=== PATIENT | female | born 1955 | race Caucasian/White ===

== ENCOUNTER 2022-06-24 15:32 | Inpatient (IN) | payer MEDICARE ==
[~2022-06-24] VITALS: Ht 167.6 cm; Wt 86.0 kg
[~2022-06-24 15:32] MED LIST: ACET-1074 PO; ASPI-1264 PO; CHOL20004 PO; EMPA25TA PO; ESOM20CA23 PO; FLUT1BLS3 PO; FURO80TA3 PO; GABA300C PO; GLIM2TAB6 PO; IBUP-1985 PO; INSU200I4 SQ; LACT1CAP65 PO; LEVO150T8 PO; LOVA40TA2 PO; MELA5TAB21 PO; METF-438 PO; PARO20TA6 PO; TRIA1TAB5 PO; VITA-268 PO
[2022-06-24 16:16] LABS: BASOPHILS % (AUTO) 0.5 % (0-1); EOSINOPHILS # (AUTO) 0.1 X10'3 (0-0.9); EOSINOPHILS % (AUTO) 1.1 % (0-6); HEMATOCRIT 36.2 % (35.0-45.0); LYMPHOCYTES # (AUTO) 0.7 X10'3 (1.1-4.8); MEAN CORPUSCULAR HEMOGLOBIN 28.5 PG (27.0-31.0); MEAN CORPUSCULAR HGB CONC 33.3 g/dL (33.0-36.5); MEAN CORPUSCULAR VOLUME 85.6 FL (78-98); MONOCYTES # (AUTO) 0.6 X10'3 (0-0.9); NEUTROPHILS # (AUTO) 8.9 X10'3 (1.8-7.7); NEUTROPHILS % (AUTO) 85.4 % (42-75); PLATELET COUNT 296 X10'3 (140-440); RED BLOOD COUNT 4.23 X10'6 (4.20-5.60); RED CELL DISTRIBUTION WIDTH 23.7 % (11.5-14.5); WHITE BLOOD COUNT 10.4 X10'3 (4.5-11.0)
[2022-06-24 16:40] LABS: ALANINE AMINOTRANSFERASE 26 U/L (12-78); ALBUMIN 2.9 G/DL (3.4-5.0); ALBUMIN/GLOBULIN RATIO 0.7 (1.1-1.5); ALKALINE PHOSPHATASE 76 IU/L (46-116); ANION GAP 9 (8-16); ASPARTATE AMINO TRANSFERASE 21 U/L (10-37); BILIRUBIN,TOTAL 0.5 MG/DL (0.1-1.0); BLOOD UREA NITROGEN 52 MG/DL (7-18); BUN/CREATININE RATIO 49.5 (6.6-38.0); CHLORIDE 95 MMOL/L (99-107); CREATININE 1.05 MG/DL (0.40-0.90); GLUCOSE 236 MG/DL (70-104); POTASSIUM 3.9 MMOL/L (3.5-5.1); SODIUM 132 MMOL/L (135-145); TOTAL CARBON DIOXIDE 28.5 MMOL/L (24-32); TOTAL PROTEIN 7.3 G/DL (6.4-8.2); eGFR 52 ML/MIN
[2022-06-24 16:42] LABS: CALCIUM 13.2 MG/DL (8.5-10.1)
[2022-06-24 16:45] LABS: PLATELET ESTIMATE NORMAL
[2022-06-24 16:47] LABS: ANISOCYTOSIS 3+; ELLIPTOCYTES FEW; POLYCHROMASIA FEW
--- NOTE | 2022-06-24 17:19 | NUR ---
Patient skin signs and mentation are WNL. GCS 15. Reporting increased pain now a 10/10 to right foot and left buttocks. Appears in minor distress.
[2022-06-24] MEDS ORDERED: normal saline 1000ML IV soln IV ONE (20:20)
[2022-06-24] MEDS ORDERED: vancomycin/NS 1 GM ADD-VANTAGE 250 ML IV ONE (20:30)
[2022-06-24] MEDS ORDERED: metroNIDAZOLE-Flagyl 500mg/NS 100 ML IV ONE (21:15)
[2022-06-24 21:17] LABS: CLARITY,URINE CLOUDY (Clear); COLOR,URINE YELLOW (Yellow); GLUCOSE, URINE NEGATIVE (Neg); KETONES,URINE TRACE mg/dl (Neg); LEUKOCYTE ESTERASE ,URINE LARGE (Neg); NITRITES, URINE NEGATIVE (Neg); OCCULT BLOOD,URINE LARGE (Neg); PROTEIN,URINE 100 mg/dl (Neg); UROBILINOGEN,URINE 0.2 E.U/dL (0.2-1.0)
[2022-06-24] MEDS ORDERED: ondansetron/PF 4mg/2ml inj IV ONE (21:25)
[2022-06-24] MEDS ORDERED: morphine 4 MG/ML inj SYRINge IV ONE (21:25)
[2022-06-24 21:41] LABS: UA COLLECTION TYPE STRAIGHT CATH
[2022-06-24 21:43] LABS: WBC,URINE TNTC /HPF (0-4)
[2022-06-24 21:44] LABS: RBC,URINE 20-50 /HPF (0-2)
[2022-06-24 21:46] LABS: BACTERIA,URINE 3+ /HPF (Neg); MUCUS STRANDS NONE SEEN /LPF (Neg); SQUAMOUS EPITHELIAL CELL,UR FEW /LPF (FEW)
[2022-06-24] MEDS ORDERED: CefTRIAXone 2gm/D5W 50ml BAG 50 ML IV ONE (22:10)
[2022-06-24] MEDS ORDERED: INSU100V9 SQ (22:30)
[2022-06-24] MEDS ORDERED: PRED5TAB49 PO (22:31)
[2022-06-24] MEDS ORDERED: HYDR-3965 PO (22:32)
[2022-06-24] MEDS ORDERED: NYST30CR35 TP (22:33)
[2022-06-24] MEDS ORDERED: METF-438 PO (22:33)
[2022-06-24] MEDS ORDERED: ALB0.5UD IH (22:34)
[2022-06-24] MEDS ORDERED: ATR0.5NEB NEB (22:34)
[2022-06-24] MEDS ORDERED: ASPI-1264 PO (22:35)
[2022-06-24] MEDS ORDERED: MOME13HF11 INH (22:35)
[2022-06-24] MEDS ORDERED: PRAV20TA4 PO (22:36)
[2022-06-24] MEDS ORDERED: LEVO150T PO (22:37)
[2022-06-24] MEDS ORDERED: PANT-47 PO (22:37)
[2022-06-24] MEDS ORDERED: APIX5TAB3 PO (22:38)
[2022-06-24] MEDS ORDERED: ondansetron/PF 4mg/2ml inj IV PRN (22:55)
[2022-06-24] MEDS ORDERED: potassium Cl 40MEQ/1/2NS 520ml 520 ML IV PRN (22:55)
[2022-06-24] MEDS ORDERED: acetaminophen 325mg tablet PO PRN (22:55)
[2022-06-24] MEDS ORDERED: magnesium 4gm in 100ml NS 100 ML IV PRN (22:55)
[2022-06-24] MEDS ORDERED: potassium Cl 20 mEq SR tablet PO PRN ×2 (22:55)
[2022-06-24] MEDS ORDERED: magnesium Cl slow-release 64mg tablet PO PRN (22:55)
[2022-06-24] MEDS ORDERED: mag hydrox/Alum hydrox/simeth 30ml oral suspension PO PRN (22:55)
[2022-06-24] MEDS ORDERED: magnesium hydroxide 30ml (MOM) UD suspension PO PRN (22:55)
[2022-06-24] MEDS ORDERED: pamidronate disodium inj 60 MG in normal saline 500ml IV soln 500 ML IV ONE (23:00)
[2022-06-24] MEDS ORDERED: glucagon, human recombinant 1mg kit SUBCUT PRN (23:05)
[2022-06-24] MEDS ORDERED: dextrose 50%-water 50ml dispensing syringe IV PRN ×2 (23:05)
[2022-06-24] MEDS ORDERED: DEXTROSE 15 GM of carb/4 tabs (each vial/BOTTLE has 4 tablets) PO PRN ×2 (23:05)
[2022-06-24] MEDS ORDERED: MESSAGE TO PHARMACY PO ONE (23:05)
[2022-06-24] MEDS ORDERED: PAMIDRONATE IV ONE (23:05)
[2022-06-24] MEDS ORDERED: NORMAL SALINE IV ONE (23:05)
[2022-06-24] MEDS ORDERED: albuterol 2.5 MG/3 ML nebule NEB PRN (23:20)
[2022-06-24] MEDS: normal saline 1000ml 1,000 ML IV SCH (23:59)
--- NOTE | 2022-06-25 01:44 | NUR ---
Patient transitioned to hospital bed. Florez noted patent, hung on bed zafar. Colostomy bag checked at this time, no need for emptying. Warm linens provided. Patient placed back on NIBP, spo2, cardiac monitoring. Patient repositioned in comfortable position. Patient denies other needs at this time.
--- NOTE | 2022-06-25 02:09 | NUR ---
Patient noted to have spo2 of 86 percent while sleeping. Patient was placed on 3L via NC, Spo2 increased to >90 percent.
[2022-06-25] MEDS: albuterol 2.5 MG/3 ML nebule NEB SCH ×4 (04:04→20:58)
[2022-06-25] MEDS: normal saline 1000ml 1,000 ML IV SCH ×2 (05:42→12:12)
[2022-06-25] MEDS ORDERED: levoTHYROXINE 75mcg tablet PO SCH (07:00)
[2022-06-25] MEDS: budesonide 0.5mg/2ml UD nebule IH SCH ×2 (08:22→20:58)
[2022-06-25] MEDS: ipratropium 0.5 MG/2.5ML nebule NEB SCH ×2 (08:22→20:58)
[2022-06-25] MEDS: apixaban 5mg tablet PO SCH ×2 (09:32→20:46)
[2022-06-25] MEDS: aspirin 325mg tablet PO SCH (09:32)
[2022-06-25] MEDS: atorvastatin 10mg tablet PO SCH (09:32)
[2022-06-25] MEDS: pantoprazole 40mg Tablet.DR PO SCH (09:32)
[2022-06-25] MEDS: PARoxetine 20mg tablet PO SCH (09:32)
[2022-06-25] MEDS: predniSONE 20 mg tablet PO SCH (09:32)
[2022-06-25] MEDS: furosemide 20 MG/2 ML vial IV SCH ×2 (09:32→19:59)
[2022-06-25] MEDS: docusate sod 100mg capsule PO SCH ×2 (09:33→19:59)
[2022-06-25 09:40] LABS: POTASSIUM 3.8 MMOL/L (3.5-5.1)
[2022-06-25 09:43] LABS: MAGNESIUM 0.9 MG/DL (1.5-2.4)
[2022-06-25] MEDS: K and/or MAG REPLACEMENT MC SCH ×2 (09:44→19:58)
--- NOTE | 2022-06-25 09:50 | NUR ---
DR MK CONNOLLY FOR CRITICAL MAG LEVEL RESULTS.
--- NOTE | 2022-06-25 10:12 | NUR ---
Patient in room ED 6. I have received report from Kristyn TILLMAN and had the opportunity to ask questions and assume patient care.
--- NOTE | 2022-06-25 10:15 | NUR ---
BLOOD SUGAR CHECKED PER ACCUCHECK WITH READING 43. PATIENT AWAKENS EASILY THEN DOZING IN BED. NO DIET ORDER. ONE AMP 50% DEXTROSE GIVEN IV PUSH. PATIENT ORIENTED TO TIME AND PLACE. TOOK SIPS OF JUICE AND RETAINED.
[2022-06-25 11:00] VITALS: BP 88/54
--- NOTE | 2022-06-25 11:34 | NUR ---
Message: Indu Soto 3012A- Needs a diet order, please. -Christy ABERNATHY 5441 Transaction number: [id number]
--- NOTE | 2022-06-25 12:42 | NUR ---
Message: Indu Soto 3012C - Needs a diet order. Controlled carb? NPO?. Can this PT eat? -Christy ABERNATHY 5441 Transaction number: [id number]
[2022-06-25] MEDS: vancomycin/NS 1 GM ADD-VANTAGE 250 ML IV SCH (14:00)
--- NOTE | 2022-06-25 14:25 | NUR ---
Message: CharlesShakaie 3012C - 3rd page. This Pt needs a diet order, please. -Christy ABERNATHY 5441 Transaction number: [id number] Addendum: 06/25/22 at 1429 by Christy Vora RN Provider finally responded, Pt to be NPO. Please see interventions
[2022-06-25 14:27] LABS: BASOPHILS % (AUTO) 0.6 % (0-1); EOSINOPHILS # (AUTO) 0.1 X10'3 (0-0.9); EOSINOPHILS % (AUTO) 1.8 % (0-6); HEMATOCRIT 30.2 % (35.0-45.0); LYMPHOCYTES # (AUTO) 0.3 X10'3 (1.1-4.8); LYMPHOCYTES % (AUTO) 3.7 % (21-51); MEAN CORPUSCULAR HEMOGLOBIN 29.1 PG (27.0-31.0); MEAN CORPUSCULAR HGB CONC 33.2 g/dL (33.0-36.5); MEAN CORPUSCULAR VOLUME 87.6 FL (78-98); MEAN PLATELET VOLUME 7.6 FL (7.4-10.4); MONOCYTES # (AUTO) 0.3 X10'3 (0-0.9); MONOCYTES % (AUTO) 3.7 % (2-12); NEUTROPHILS # (AUTO) 6.4 X10'3 (1.8-7.7); NEUTROPHILS % (AUTO) 90.2 % (42-75); PLATELET COUNT 211 X10'3 (140-440); RED BLOOD COUNT 3.45 X10'6 (4.20-5.60); RED CELL DISTRIBUTION WIDTH 23.5 % (11.5-14.5); WHITE BLOOD COUNT 7.1 X10'3 (4.5-11.0)
[2022-06-25 14:46] LABS: ALBUMIN 2.2 G/DL (3.4-5.0); ANION GAP 6 (8-16); BLOOD UREA NITROGEN 32 MG/DL (7-18); CALCIUM 10.8 MG/DL (8.5-10.1); CHLORIDE 106 MMOL/L (99-107); CREATININE 0.64 MG/DL (0.40-0.90); GLUCOSE 113 MG/DL (70-104); PHOSPHORUS 1.6 MG/DL (2.3-4.5); POTASSIUM 3.5 MMOL/L (3.5-5.1); SODIUM 138 MMOL/L (135-145); TOTAL CARBON DIOXIDE 25.7 MMOL/L (24-32); eGFR > 90 ML/MIN
[2022-06-25 14:52] LABS: MAGNESIUM 0.8 MG/DL (1.5-2.4)
--- NOTE | 2022-06-25 14:57 | NUR ---
Message: Indu Soto 3012c- Crit Mg 0.8. Replacing Mg with replacement protocol. -Christy ABERNATHY 5441 Transaction number: [id number]
[2022-06-25 15:00] VITALS: BP 90/49
[2022-06-25] MEDS ORDERED: magnesium 2GM in 50ml NS 50 ML IV PRN (15:05)
[2022-06-25] MEDS ORDERED: magnesium 4gm in 100ml NS 100 ML IV PRN (15:05)
[2022-06-25] MEDS: piperacillin/tazo 3.375gm/50ml 50 ML IV SCH (16:44)
[2022-06-25 18:00] VITALS: BP 93/48
--- NOTE | 2022-06-25 18:38 | NUR ---
Problems reprioritized. Patient report given, questions answered & plan of care reviewed with Araceli RN.
--- NOTE | 2022-06-25 20:00 | NUR ---
Received pt. awake aware lethargic. Answers questions appropriately appears depressed. Skin is cool and edematous. Peripheral IV intact NS and Mag replacement infusing. Pt. has a colostomy bag with mod amt of liquid brown stool. Home sims with mod amt yellow clear urine. Pt. is NPO. Paged MD patrick for phos replacement orders.
[2022-06-25] MEDS ORDERED: sodium phosphate inj. 15 MMOL in dextrose 5%-water 250 ML IV PRN (20:40)
[2022-06-25] MEDS ORDERED: potassium phosphate inj 15 MMOL in NS 250ml IV soln 250 ML IV ONE (20:45)
[2022-06-25] MEDS: gabapentin 300mg capsule PO SCH (20:46)
[2022-06-25] MEDS: insulin glargine (Lantus) pen - multi-dose SQ SCH (21:00)
[2022-06-25] MEDS ORDERED: insulin glargine (Lantus) pen - multi-dose SQ SCH (21:00)
[2022-06-25] MEDS: HYDROcodone/acetaminophen 5mg/325mg tablet PO PRN (21:41)
[2022-06-25 22:00] VITALS: BP 120/62
[2022-06-25] MEDS ORDERED: CefTRIAXone/D5W-Rocephin 1gm 50 ML IV SCH (22:00)
--- NOTE | 2022-06-26 00:48 | NUR ---
Spoke with daughter Mckenna; concerned for pt's pain and NPO status as pt. called her with complaints. Assured pt has been medicated for pain but not at usual home dose due to low BP. Pt is NPO due to CT results. Pt. is getting plenty of IV fluids for hydration; glucose level is normal and insulin is on hold tonight. Daughter has been reassured needs are being met. Will update as needed and as time permits.
[2022-06-26] MEDS: piperacillin/tazo 3.375gm/50ml 50 ML IV SCH ×3 (01:11→16:47)
[2022-06-26] MEDS: normal saline 1000ml 1,000 ML IV SCH ×2 (01:13→14:11)
[2022-06-26] MEDS: vancomycin/NS 1 GM ADD-VANTAGE 250 ML IV SCH ×2 (02:12→14:18)
[2022-06-26 02:31] VITALS: BP 99/62
[2022-06-26 02:39] LABS: ALANINE AMINOTRANSFERASE 21 U/L (12-78); ALBUMIN 2.2 G/DL (3.4-5.0); ALBUMIN/GLOBULIN RATIO 0.6 (1.1-1.5); ALKALINE PHOSPHATASE 60 IU/L (46-116); ANION GAP 8 (8-16); ASPARTATE AMINO TRANSFERASE 14 U/L (10-37); BILIRUBIN,TOTAL 0.2 MG/DL (0.1-1.0); BLOOD UREA NITROGEN 24 MG/DL (7-18); BUN/CREATININE RATIO 32.4 (6.6-38.0); CALCIUM 10.6 MG/DL (8.5-10.1); CHLORIDE 108 MMOL/L (99-107); CREATININE 0.74 MG/DL (0.40-0.90); GLUCOSE 101 MG/DL (70-104); MAGNESIUM 2.4 MG/DL (1.5-2.4); PHOSPHORUS 2.4 MG/DL (2.3-4.5); POTASSIUM 3.5 MMOL/L (3.5-5.1); SODIUM 140 MMOL/L (135-145); TOTAL CARBON DIOXIDE 24.2 MMOL/L (24-32); TOTAL PROTEIN 5.7 G/DL (6.4-8.2); eGFR 78 ML/MIN
[2022-06-26] MEDS: albuterol 2.5 MG/3 ML nebule NEB SCH ×4 (03:00→20:03)
[2022-06-26] MEDS: HYDROcodone/acetaminophen 5mg/325mg tablet PO PRN ×2 (03:58→16:47)
[2022-06-26 06:43] LABS: BASOPHILS % (AUTO) 0.7 % (0-1); EOSINOPHILS # (AUTO) 0.3 X10'3 (0-0.9); EOSINOPHILS % (AUTO) 3.9 % (0-6); HEMATOCRIT 31.2 % (35.0-45.0); HEMOGLOBIN 10.2 g/dl (12.0-16.0); LYMPHOCYTES # (AUTO) 0.5 X10'3 (1.1-4.8); LYMPHOCYTES % (AUTO) 8.1 % (21-51); MEAN CORPUSCULAR HGB CONC 32.8 g/dL (33.0-36.5); MEAN CORPUSCULAR VOLUME 88.6 FL (78-98); MEAN PLATELET VOLUME 7.5 FL (7.4-10.4); MONOCYTES # (AUTO) 0.4 X10'3 (0-0.9); MONOCYTES % (AUTO) 6.1 % (2-12); NEUTROPHILS # (AUTO) 5.4 X10'3 (1.8-7.7); NEUTROPHILS % (AUTO) 81.2 % (42-75); PLATELET COUNT 228 X10'3 (140-440); RED BLOOD COUNT 3.52 X10'6 (4.20-5.60); RED CELL DISTRIBUTION WIDTH 23.5 % (11.5-14.5); WHITE BLOOD COUNT 6.7 X10'3 (4.5-11.0)
[2022-06-26 07:00] VITALS: BP 104/53
[2022-06-26 07:54] LABS: ANISOCYTOSIS 3+; PLATELET ESTIMATE NORMAL; POIKILOCYTOSIS 1+; POLYCHROMASIA FEW; ROULEAUX 1+
[2022-06-26] MEDS: docusate sod 100mg capsule PO SCH ×2 (08:00→22:21)
[2022-06-26] MEDS: K and/or MAG REPLACEMENT MC SCH ×2 (08:00→21:53)
[2022-06-26] MEDS: budesonide 0.5mg/2ml UD nebule IH SCH ×2 (08:16→20:03)
[2022-06-26] MEDS: ipratropium 0.5 MG/2.5ML nebule NEB SCH ×2 (08:16→20:03)
[2022-06-26] MEDS: aspirin 325mg tablet PO SCH (08:23)
[2022-06-26] MEDS: levoTHYROXINE 175mcg tablet PO SCH (08:23)
[2022-06-26] MEDS: predniSONE 20 mg tablet PO SCH (08:23)
[2022-06-26] MEDS: apixaban 5mg tablet PO SCH ×2 (08:24→22:21)
[2022-06-26] MEDS: atorvastatin 10mg tablet PO SCH (08:24)
[2022-06-26] MEDS: pantoprazole 40mg Tablet.DR PO SCH (08:24)
[2022-06-26] MEDS: PARoxetine 20mg tablet PO SCH (09:54)
[2022-06-26 12:00] VITALS: BP 111/78
[2022-06-26 16:00] VITALS: BP 102/50
[2022-06-26 18:00] VITALS: BP 115/58
[2022-06-26] MEDS: insulin glargine (Lantus) pen - multi-dose SQ SCH (21:00)
--- NOTE | 2022-06-26 22:02 | NUR ---
[id number] REQUESTING MELATONIN AND BENADRYL. CAN I PLEASE HAVE AN ORDER. Addendum: 06/26/22 at 2203 by Laxmi Mata RN PAGE SENT:[place] [id number] IS REQUESTING MELATONIN AND BENADRYL. CAN I PLEASE HAVE AN ORDER.
[2022-06-26] MEDS: gabapentin 300mg capsule PO SCH (22:21)
[2022-06-26] MEDS: diphenhydrAMINE 25mg capsule PO PRN (22:21)
[2022-06-26] MEDS: Melatonin 3mg tablet PO SCH (22:22)
[2022-06-27] MEDS: HYDROcodone/acetaminophen 5mg/325mg tablet PO PRN ×3 (00:39→22:40)
[2022-06-27] MEDS: piperacillin/tazo 3.375gm/50ml 50 ML IV SCH ×3 (00:40→16:54)
[2022-06-27] MEDS ORDERED: VANCOMYCIN LEVEL IV ONE (01:30)
[2022-06-27 02:00] VITALS: BP 110/62
[2022-06-27] MEDS: vancomycin/NS 1 GM ADD-VANTAGE 250 ML IV SCH ×2 (03:27→15:08)
[2022-06-27] MEDS: normal saline 1000ml 1,000 ML IV SCH ×2 (03:31→19:03)
[2022-06-27] MEDS: albuterol 2.5 MG/3 ML nebule NEB SCH ×4 (03:36→20:15)
[2022-06-27 03:49] LABS: ALANINE AMINOTRANSFERASE 19 U/L (12-78); ALBUMIN/GLOBULIN RATIO 0.6 (1.1-1.5); ALKALINE PHOSPHATASE 58 IU/L (46-116); ANION GAP 8 (8-16); ASPARTATE AMINO TRANSFERASE 21 U/L (10-37); BILIRUBIN,TOTAL 0.2 MG/DL (0.1-1.0); BLOOD UREA NITROGEN 22 MG/DL (7-18); BUN/CREATININE RATIO 21.2 (6.6-38.0); CALCIUM 9.5 MG/DL (8.5-10.1); CHLORIDE 110 MMOL/L (99-107); CREATININE 1.04 MG/DL (0.40-0.90); GLUCOSE 200 MG/DL (70-104); MAGNESIUM 1.8 MG/DL (1.5-2.4); PHOSPHORUS 1.6 MG/DL (2.3-4.5); POTASSIUM 3.4 MMOL/L (3.5-5.1); SODIUM 140 MMOL/L (135-145); TOTAL CARBON DIOXIDE 22.3 MMOL/L (24-32); TOTAL PROTEIN 5.3 G/DL (6.4-8.2); VANCOMYCIN,TROUGH 18.1 UG/ML (6.0-14.0); eGFR 53 ML/MIN
[2022-06-27 07:00] VITALS: BP 111/60
[2022-06-27 07:05] LABS: BASOPHILS % (AUTO) 0.4 % (0-1); EOSINOPHILS # (AUTO) 0.2 X10'3 (0-0.9); EOSINOPHILS % (AUTO) 3.4 % (0-6); HEMATOCRIT 28.8 % (35.0-45.0); HEMOGLOBIN 9.6 g/dl (12.0-16.0); LYMPHOCYTES # (AUTO) 0.7 X10'3 (1.1-4.8); LYMPHOCYTES % (AUTO) 9.9 % (21-51); MEAN CORPUSCULAR HGB CONC 33.2 g/dL (33.0-36.5); MEAN CORPUSCULAR VOLUME 87.5 FL (78-98); MEAN PLATELET VOLUME 7.3 FL (7.4-10.4); MONOCYTES # (AUTO) 0.4 X10'3 (0-0.9); MONOCYTES % (AUTO) 5.7 % (2-12); NEUTROPHILS # (AUTO) 5.6 X10'3 (1.8-7.7); NEUTROPHILS % (AUTO) 80.6 % (42-75); PLATELET COUNT 231 X10'3 (140-440); RED CELL DISTRIBUTION WIDTH 23.6 % (11.5-14.5)
--- NOTE | 2022-06-27 07:52 | NUR ---
PM BS not checked and Lantus not given by the NOC. Charge had several pt's and work load prevented administration.
[2022-06-27] MEDS: K and/or MAG REPLACEMENT MC SCH ×2 (08:00→19:04)
[2022-06-27] MEDS: docusate sod 100mg capsule PO SCH ×2 (08:00→19:06)
[2022-06-27] MEDS: levoTHYROXINE 175mcg tablet PO SCH (08:00)
[2022-06-27] MEDS: atorvastatin 10mg tablet PO SCH (08:01)
[2022-06-27] MEDS: PARoxetine 20mg tablet PO SCH (08:01)
[2022-06-27] MEDS: pantoprazole 40mg Tablet.DR PO SCH (08:01)
[2022-06-27] MEDS: predniSONE 20 mg tablet PO SCH (08:01)
[2022-06-27 08:13] LABS: IMMUNOGLOBULIN A, QN, SERUM 202 mg/dL (87-352); IMMUNOGLOBULIN G, QN, SERUM 541 mg/dL (586-1602); IMMUNOGLOBULIN M, QN, SERUM 103 mg/dL (26-217)
[2022-06-27] MEDS: budesonide 0.5mg/2ml UD nebule IH SCH ×2 (08:31→20:15)
[2022-06-27] MEDS: ipratropium 0.5 MG/2.5ML nebule NEB SCH ×2 (08:31→20:15)
--- NOTE | 2022-06-27 09:46 | NUR ---
Message: Charles 3015B, Pt has a low phos of 1.6 but we don't have any replacement orders for the pt. Can you or I add that order on? Alok [id number]
[2022-06-27] MEDS ORDERED: sodium chloride 0.45% 1,000 ML IV SCH (10:15)
[2022-06-27] MEDS ORDERED: midazolam 1 mg/ML 2ml injection ONE (10:21)
[2022-06-27] MEDS ORDERED: fentaNYL/PF 50MCG/1 ML 2ML syringe ONE (10:22)
[2022-06-27] MEDS ORDERED: LIDOcaine 1% (10mg/ml) 2ml vial ONE (10:22)
--- NOTE | 2022-06-27 10:36 | NUR ---
Pt taken down to Angio for lung biopsy
[2022-06-27] MEDS ORDERED: potassium phosphate inj 30 MMOL in normal saline 250ml IV soln 250 ML IV ONE (11:35)
[2022-06-27 12:00] VITALS: BP 114/62
--- NOTE | 2022-06-27 12:00 | NUR ---
reported critical lab value to primary and administrative representative
--- NOTE | 2022-06-27 12:15 | NUR ---
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 Alok [phone]
--- NOTE | 2022-06-27 15:02 | NUR ---
Message: Charles [id number], Pt's family wants to know plan of care today now with VRE infection if she will still be DC'd. Daughter Mckenna [phone]. Or I can update her if you prefer updating me. Alok [phone]
--- NOTE | 2022-06-27 15:12 | NUR ---
Message: Charles 3015B, Pt has a new onset of Afib Aflutter. Current HR is 115. Alok 2222
--- NOTE | 2022-06-27 15:27 | NUR ---
WOUND NURSE IN AT 10:15AM AND AGAIN AT 11:00 AM TO ADDRESS THE WOUND CARE CONSULT. PT REMAINS OUT OF THE ROOM FOR BX PROCEDURE. WOUND TEAM WILL PLAN TO SEE TOMORROW FOR ASSESSMENT/TX OF WOUND.
--- NOTE | 2022-06-27 15:52 | NUR ---
Message: Charles 6295B, Urgent - Pt still in A flutter sitting at a steady 148 HR. Do you want an IV push or GTT started? We are doing an EKG now. Alok [phone]
[2022-06-27] MEDS ORDERED: diltiazem 5mg/ml 5ml inj. IV ONE (16:30)
--- NOTE | 2022-06-27 16:35 | NUR ---
responded to pt update. Starting on Cardizem IV push and GTT order.
[2022-06-27] MEDS: diltiazem-NS 100mg/100ml 100 ML IV SCH (17:45)
--- NOTE | 2022-06-27 17:57 | NUR ---
Message: Charles [id number], Pt wants to be swapped to DNR status. Will tell NOC as well. Alok [phone]
--- NOTE | 2022-06-27 17:58 | NUR ---
Pt stated to me she wanted to be swapped to DNR. I discussed what that meant to her and she agreed and said that she still wanted to be DNR. She stated her daughter is her PoA and both have talked about what DNR meant and that they agreed with the change. I have reached out to Dr Hernandez about her wishes but as it is change of shift I will also discuss with NOC. Pt seems sure in her understanding and clearly stated her wishes.
[2022-06-27] MEDS: insulin Lispro (HumaLOG) vial - multi-dose SQ SCH (19:49)
[2022-06-27] MEDS: diphenhydrAMINE 25mg capsule PO PRN (20:56)
[2022-06-27] MEDS: Melatonin 3mg tablet PO SCH (20:56)
[2022-06-27] MEDS: gabapentin 300mg capsule PO SCH (20:56)
[2022-06-27] MEDS: insulin glargine (Lantus) pen - multi-dose SQ SCH (21:12)
[2022-06-27 22:00] VITALS: BP 110/62
[2022-06-27] MEDS: linezolid 600mg/300ml PREMIX 300 ML IV SCH (22:40)
[2022-06-28] VITALS (11 sets, daily range): BP systolic 107–140; BP diastolic 50–74
[2022-06-28] MEDS: albuterol 2.5 MG/3 ML nebule NEB SCH ×4 (03:56→20:52)
[2022-06-28 06:27] LABS: BASOPHILS % (AUTO) 0.5 % (0-1); EOSINOPHILS # (AUTO) 0.2 X10'3 (0-0.9); EOSINOPHILS % (AUTO) 2.3 % (0-6); HEMATOCRIT 30.7 % (35.0-45.0); HEMOGLOBIN 9.9 g/dl (12.0-16.0); LYMPHOCYTES # (AUTO) 0.9 X10'3 (1.1-4.8); LYMPHOCYTES % (AUTO) 9.7 % (21-51); MEAN CORPUSCULAR HGB CONC 32.2 g/dL (33.0-36.5); MEAN CORPUSCULAR VOLUME 90.1 FL (78-98); MEAN PLATELET VOLUME 7.3 FL (7.4-10.4); MONOCYTES # (AUTO) 0.4 X10'3 (0-0.9); MONOCYTES % (AUTO) 4.4 % (2-12); NEUTROPHILS # (AUTO) 7.6 X10'3 (1.8-7.7); NEUTROPHILS % (AUTO) 83.1 % (42-75); PLATELET COUNT 223 X10'3 (140-440); RED BLOOD COUNT 3.41 X10'6 (4.20-5.60); WHITE BLOOD COUNT 9.2 X10'3 (4.5-11.0)
--- NOTE | 2022-06-28 06:30 | NUR ---
Patient in room PCU 3015. I have received report from Jc TILLMAN and had the opportunity to ask questions and assume patient care.
[2022-06-28 06:38] LABS: ALANINE AMINOTRANSFERASE 15 U/L (12-78); ALBUMIN 2.1 G/DL (3.4-5.0); ALBUMIN/GLOBULIN RATIO 0.6 (1.1-1.5); ALKALINE PHOSPHATASE 60 IU/L (46-116); ANION GAP 8 (8-16); ASPARTATE AMINO TRANSFERASE 9 U/L (10-37); BILIRUBIN,TOTAL 0.2 MG/DL (0.1-1.0); BLOOD UREA NITROGEN 16 MG/DL (7-18); BUN/CREATININE RATIO 17.4 (10.0-20.0); CALCIUM 9.4 MG/DL (8.5-10.1); CHLORIDE 112 MMOL/L (99-107); CREATININE 0.92 MG/DL (0.40-0.90); GLUCOSE 158 MG/DL (70-104); MAGNESIUM 1.6 MG/DL (1.5-2.4); PHOSPHORUS 1.6 MG/DL (2.3-4.5); POTASSIUM 3.7 MMOL/L (3.5-5.1); SODIUM 143 MMOL/L (135-145); TOTAL CARBON DIOXIDE 22.6 MMOL/L (24-32); TOTAL PROTEIN 5.5 G/DL (6.4-8.2); eGFR 61 ML/MIN
[2022-06-28] MEDS: levoTHYROXINE 175mcg tablet PO SCH (07:00)
[2022-06-28 07:37] LABS: ANISOCYTOSIS 3+; BURR CELLS 1+; ELLIPTOCYTES 1+; PLATELET ESTIMATE NORMAL; POLYCHROMASIA FEW; ROULEAUX 1+
[2022-06-28] MEDS: pantoprazole 40mg Tablet.DR PO SCH (07:51)
[2022-06-28] MEDS: atorvastatin 10mg tablet PO SCH (07:51)
[2022-06-28] MEDS: predniSONE 20 mg tablet PO SCH (07:52)
[2022-06-28] MEDS: PARoxetine 20mg tablet PO SCH (07:52)
[2022-06-28] MEDS: linezolid 600mg/300ml PREMIX 300 ML IV SCH ×2 (07:56→20:44)
[2022-06-28] MEDS: K and/or MAG REPLACEMENT MC SCH ×2 (08:00→20:00)
[2022-06-28] MEDS: docusate sod 100mg capsule PO SCH ×2 (08:00→18:52)
[2022-06-28] MEDS: piperacillin/tazo 3.375gm/50ml 50 ML IV SCH ×4 (08:37→23:57)
[2022-06-28] MEDS: normal saline 1000ml 1,000 ML IV SCH (10:32)
--- NOTE | 2022-06-28 11:15 | NUR ---
Nurse checked on Pt who was requesting respiratory tx. Nurse paged RT to request treatment to be done.
[2022-06-28] MEDS: HYDROcodone/acetaminophen 5mg/325mg tablet PO PRN (11:55)
[2022-06-28] MEDS: ipratropium 0.5 MG/2.5ML nebule NEB SCH ×2 (13:00→20:52)
[2022-06-28] MEDS: budesonide 0.5mg/2ml UD nebule IH SCH ×2 (13:00→20:52)
--- NOTE | 2022-06-28 13:05 | NUR ---
PRESSURE ULCER EDUCATION: DEFINITION: A pressure ulcer is an area of skin that breaks down when you stay in one position too long. The constant pressure against the skin reduces the blood flow to that area and the affected tissue dies. CAUSES: "Being bedridden or in a wheelchair "Fragile skin "Having a chronic condition, such as diabetes or vascular disease "Inability to move certain parts of your body without assistance "Older age "Incontinence of urine or stool SYMPTOMS: "A reddened area that DOES NOT turn white when pressed on - this can be the beginning of a pressure ulcer "A blister, deep sore or a crater - these can be advanced pressure ulcers FIRST AID: "Relieve the pressure on this area "Keep the area clean and dry "Call your primary doctor if you see any of the above symptoms "DO NOT massage the area "DO NOT use a donut shaped or ring shaped pillow- these actually interfere with the blood flow and cause complications PREVENTION: "Check for pressure ulcers everyday "Change position at least every two hours to relieve pressure "Use items that help relieve pressure- pillows, sheepskin, foam padding, and powders. "Keep skin clean and dry "Eat healthy well balanced meals "Exercise daily IF YOU SEE ANY OF THESE SYMPTOMS WHILE IN THE HOSPITAL - TELL YOUR NURSE IMMEDIATELY. IF YOU SEE ANY OF THESE SYMPTOMS WHILE AT HOME OR HAVE ANY QUESTIONS OR CONCERNS ABOUT PRESSURE ULCERS - CALL YOUR PRIMARY DOCTOR IMMEDIATELY. Addendum: 06/28/22 at 1306 by Sabrina Power RN Amended: Links added.
[2022-06-28] MEDS: insulin Lispro (HumaLOG) vial - multi-dose SQ SCH ×2 (13:36→18:51)
--- NOTE | 2022-06-28 14:05 | NUR ---
Initial: Pt presented for weakness and confusion and admit for hypercalcemia and encephalopathy. Pt with recent necrotizing fasciitis and colostomy placement. Per WOC note pt with surgical wound to left buttocks that is 13.0 cm long, 6.0 cm wide, and 1.0 cm deep. Pt currently receiving routine Linzeolid. Per EMR pt pending biopsy for multiple bilat lung nodules and code status just changed to DNR. Will provide low tyramine nutrition therapy education as appropriate. Per EMR pt with T2DM, well controlled with A1c 7.7% 05/07/22. Pt and daughter were seen by RD 05/07 and provided with DM education and RD contact information, no further education planned at this time. Pt on a CHO controlled diet and eating well, documented with 100% PO intake meeting estimated nutrient needs. per I&O LBM 06/27 though no documentation of how much stool output via colostomy. Will continue to follow and monitor need for nutrition intervention. Recommendations: 1) Continue CHO controlled diet 2) Monitor need for ONS/additional protein 3) Routine bowel care 4) Scaled weight this admit; subsequent weekly scaled weights 5) Low tyramine nutrition therapy education as appropriate Addendum: 06/28/22 at [address] Amended: Links added.
--- NOTE | 2022-06-28 16:46 | NUR ---
Paged Provider Message: [phone]. Charles. Pt req inc. in melatonin from 3 to 6mg. this is what pt takes at home. Karla Samano [phone] Transaction number: [id number]
--- NOTE | 2022-06-28 17:40 | NUR ---
Called Pharmacy re: continuous cardizem drip requesting another one to be brought up. current one almost done infusing.
[2022-06-28] MEDS: diltiazem-NS 100mg/100ml 100 ML IV SCH ×2 (18:34→19:10)
--- NOTE | 2022-06-28 18:48 | NUR ---
[place] Medication Administration: For this medication-pass time frame, all medication were reviewed, dispensed, administered and documented per hospital policy by LAYNE Bliss.
--- NOTE | 2022-06-28 18:48 | NUR ---
[place] documentation: I have reviewed and agree with all interventions, assessments performed and documented by LAYNE Bliss.
[2022-06-28] MEDS: gabapentin 300mg capsule PO SCH (18:51)
[2022-06-28] MEDS: diphenhydrAMINE 25mg capsule PO PRN (20:44)
[2022-06-28] MEDS: Melatonin 3mg tablet PO SCH (20:44)
[2022-06-28] MEDS: insulin glargine (Lantus) pen - multi-dose SQ SCH (21:00)
[2022-06-28] MEDS: diltiazem SR 60mg capsule (twice daily) PO SCH (23:45)
[2022-06-29] VITALS (19 sets, daily range): BP systolic 114–147; BP diastolic 61–86
[2022-06-29] MEDS: albuterol 2.5 MG/3 ML nebule NEB SCH ×4 (03:00→20:07)
[2022-06-29 06:08] LABS: BASOPHILS % (AUTO) 0.5 % (0-1); EOSINOPHILS # (AUTO) 0.2 X10'3 (0-0.9); EOSINOPHILS % (AUTO) 2.1 % (0-6); HEMATOCRIT 27.9 % (35.0-45.0); HEMOGLOBIN 9.1 g/dl (12.0-16.0); LYMPHOCYTES % (AUTO) 12.2 % (21-51); MEAN CORPUSCULAR HEMOGLOBIN 28.5 PG (27.0-31.0); MEAN CORPUSCULAR HGB CONC 32.5 g/dL (33.0-36.5); MEAN CORPUSCULAR VOLUME 87.5 FL (78-98); MONOCYTES # (AUTO) 0.5 X10'3 (0-0.9); MONOCYTES % (AUTO) 5.6 % (2-12); NEUTROPHILS # (AUTO) 6.5 X10'3 (1.8-7.7); NEUTROPHILS % (AUTO) 79.6 % (42-75); PLATELET COUNT 226 X10'3 (140-440); RED BLOOD COUNT 3.19 X10'6 (4.20-5.60); RED CELL DISTRIBUTION WIDTH 23.5 % (11.5-14.5); WHITE BLOOD COUNT 8.2 X10'3 (4.5-11.0)
[2022-06-29 06:27] LABS: ALANINE AMINOTRANSFERASE 20 U/L (12-78); ALBUMIN 2.2 G/DL (3.4-5.0); ALBUMIN/GLOBULIN RATIO 0.7 (1.1-1.5); ALKALINE PHOSPHATASE 63 IU/L (46-116); ANION GAP 9 (8-16); ASPARTATE AMINO TRANSFERASE 13 U/L (10-37); BILIRUBIN,TOTAL 0.2 MG/DL (0.1-1.0); BLOOD UREA NITROGEN 15 MG/DL (7-18); BUN/CREATININE RATIO 23.4 (10.0-20.0); CALCIUM 9.2 MG/DL (8.5-10.1); CHLORIDE 111 MMOL/L (99-107); CREATININE 0.64 MG/DL (0.40-0.90); GLUCOSE 147 MG/DL (70-104); PHOSPHORUS 1.6 MG/DL (2.3-4.5); POTASSIUM 3.7 MMOL/L (3.5-5.1); SODIUM 143 MMOL/L (135-145); TOTAL CARBON DIOXIDE 23.3 MMOL/L (24-32); TOTAL PROTEIN 5.5 G/DL (6.4-8.2); eGFR > 90 ML/MIN
--- NOTE | 2022-06-29 06:53 | NUR ---
Patient in room PCU 3015. I have received report from Sandra TILLMAN and had the opportunity to ask questions and assume patient care.
[2022-06-29] MEDS: K and/or MAG REPLACEMENT MC SCH ×2 (08:00→20:00)
[2022-06-29] MEDS: ipratropium 0.5 MG/2.5ML nebule NEB SCH ×2 (08:07→20:07)
[2022-06-29] MEDS: budesonide 0.5mg/2ml UD nebule IH SCH ×2 (08:07→20:07)
[2022-06-29] MEDS: pantoprazole 40mg Tablet.DR PO SCH (08:59)
[2022-06-29] MEDS: PARoxetine 20mg tablet PO SCH (08:59)
[2022-06-29] MEDS: levoTHYROXINE 175mcg tablet PO SCH (09:00)
[2022-06-29] MEDS: docusate sod 100mg capsule PO SCH ×2 (09:00→22:40)
[2022-06-29] MEDS: atorvastatin 10mg tablet PO SCH (09:00)
[2022-06-29] MEDS: predniSONE 20 mg tablet PO SCH (09:00)
[2022-06-29] MEDS: diltiazem SR 60mg capsule (twice daily) PO SCH ×2 (09:00→22:41)
[2022-06-29] MEDS: piperacillin/tazo 3.375gm/50ml 50 ML IV SCH ×2 (09:01→17:54)
[2022-06-29] MEDS ORDERED: fentaNYL/PF 50MCG/1 ML 2ML syringe ONE (12:00)
[2022-06-29] MEDS ORDERED: midazolam 1 mg/ML 2ml injection ONE (12:00)
[2022-06-29] MEDS ORDERED: gelatin sponge, absorbable (Gelfoam 12-7MM) sponge TP ONE (12:03)
[2022-06-29] MEDS: HYDROcodone/acetaminophen 5mg/325mg tablet PO PRN ×2 (15:08→22:43)
--- NOTE | 2022-06-29 18:45 | NUR ---
Problems reprioritized. Patient report given, questions answered & plan of care reviewed with Lewis TILLMAN, patient stable at transfer of care.
[2022-06-29] MEDS: insulin Lispro (HumaLOG) vial - multi-dose SQ SCH (20:26)
[2022-06-29] MEDS: insulin glargine (Lantus) pen - multi-dose SQ SCH (21:00)
[2022-06-29] MEDS: diphenhydrAMINE 25mg capsule PO PRN (22:41)
[2022-06-29] MEDS: Melatonin 3mg tablet PO SCH (22:41)
[2022-06-29] MEDS: gabapentin 300mg capsule PO SCH (22:41)
[2022-06-30] MEDS: piperacillin/tazo 3.375gm/50ml 50 ML IV SCH ×2 (00:46→08:13)
[2022-06-30] MEDS: normal saline 1000ml 1,000 ML IV SCH (02:32)
--- NOTE | 2022-06-30 02:45 | NUR ---
Pt requested the IVF be stopped since they were already running so slow.
--- NOTE | 2022-06-30 03:00 | NUR ---
Pt voided in bed (purewick would not stay in place d/t pt refusing to remain on her back. Cleaned t up, changed out purewick and placed mesh underwear on pt to hold wound dressing and purewick in place.
[2022-06-30] MEDS: albuterol 2.5 MG/3 ML nebule NEB SCH ×3 (03:25→14:55)
[2022-06-30 06:05] LABS: BASOPHILS % (AUTO) 0.4 % (0-1); EOSINOPHILS # (AUTO) 0.2 X10'3 (0-0.9); EOSINOPHILS % (AUTO) 2.4 % (0-6); HEMATOCRIT 28.5 % (35.0-45.0); HEMOGLOBIN 9.4 g/dl (12.0-16.0); LYMPHOCYTES # (AUTO) 0.9 X10'3 (1.1-4.8); LYMPHOCYTES % (AUTO) 13.4 % (21-51); MEAN CORPUSCULAR HEMOGLOBIN 28.8 PG (27.0-31.0); MEAN CORPUSCULAR HGB CONC 32.9 g/dL (33.0-36.5); MEAN CORPUSCULAR VOLUME 87.7 FL (78-98); MEAN PLATELET VOLUME 6.9 FL (7.4-10.4); MONOCYTES # (AUTO) 0.4 X10'3 (0-0.9); MONOCYTES % (AUTO) 6.1 % (2-12); NEUTROPHILS # (AUTO) 5.4 X10'3 (1.8-7.7); NEUTROPHILS % (AUTO) 77.7 % (42-75); PLATELET COUNT 228 X10'3 (140-440); RED BLOOD COUNT 3.25 X10'6 (4.20-5.60); RED CELL DISTRIBUTION WIDTH 23.1 % (11.5-14.5); WHITE BLOOD COUNT 6.9 X10'3 (4.5-11.0)
[2022-06-30 06:14] LABS: ALANINE AMINOTRANSFERASE 26 U/L (12-78); ALBUMIN 2.3 G/DL (3.4-5.0); ALBUMIN/GLOBULIN RATIO 0.7 (1.1-1.5); ALKALINE PHOSPHATASE 63 IU/L (46-116); ANION GAP 8 (8-16); ASPARTATE AMINO TRANSFERASE 14 U/L (10-37); BILIRUBIN,TOTAL 0.3 MG/DL (0.1-1.0); BLOOD UREA NITROGEN 15 MG/DL (7-18); BUN/CREATININE RATIO 23.4 (10.0-20.0); CHLORIDE 110 MMOL/L (99-107); CREATININE 0.64 MG/DL (0.40-0.90); GLUCOSE 129 MG/DL (70-104); PHOSPHORUS 1.7 MG/DL (2.3-4.5); POTASSIUM 3.6 MMOL/L (3.5-5.1); SODIUM 141 MMOL/L (135-145); TOTAL CARBON DIOXIDE 22.8 MMOL/L (24-32); TOTAL PROTEIN 5.5 G/DL (6.4-8.2); eGFR > 90 ML/MIN
--- NOTE | 2022-06-30 06:38 | NUR ---
Patient in room PCU 3015. I have received report from Lewis TILLMAN and had the opportunity to ask questions and assume patient care. Contact precautions observed. Pt awake, right side lying, pt states she prefers sitting on side of bed but the carla-wick is unable to completely capture all urine. No distress noted. Pt breathing even and unlabored on room air. Addendum: 06/30/22 at 0640 by Jose Jett LVN Amended: Links added.
[2022-06-30 07:00] VITALS: BP 111/62
[2022-06-30] MEDS: PARoxetine 20mg tablet PO SCH (07:25)
[2022-06-30] MEDS: pantoprazole 40mg Tablet.DR PO SCH (07:25)
[2022-06-30] MEDS: predniSONE 20 mg tablet PO SCH (07:26)
[2022-06-30] MEDS: diltiazem SR 60mg capsule (twice daily) PO SCH (07:26)
[2022-06-30] MEDS: HYDROcodone/acetaminophen 5mg/325mg tablet PO PRN (07:27)
[2022-06-30] MEDS: atorvastatin 10mg tablet PO SCH (07:28)
[2022-06-30] MEDS: docusate sod 100mg capsule PO SCH (07:29)
[2022-06-30] MEDS: K and/or MAG REPLACEMENT MC SCH (07:29)
[2022-06-30] MEDS: levoTHYROXINE 175mcg tablet PO SCH (07:30)
[2022-06-30] MEDS: ipratropium 0.5 MG/2.5ML nebule NEB SCH (08:46)
[2022-06-30] MEDS: budesonide 0.5mg/2ml UD nebule IH SCH (08:46)
[2022-06-30] MEDS: insulin Lispro (HumaLOG) vial - multi-dose SQ SCH ×2 (09:17→13:33)
--- NOTE | 2022-06-30 09:33 | NUR ---
Reassessment: Pt continues eating well, documented with mostly 100% PO intake. Per EMR pt no longer receiving Linezolid, low tyramine nutrition therapy education no longer needed. LBM 06/29 documented with 850 mL stool output from colostomy. No nutrition intervention implemented at this time. Will continue to follow. Recommendations: 1) Continue CHO controlled diet 2) Monitor need for ONS/additional protein 3) Bowel care PRN 4) Scaled weight this admit; subsequent weekly scaled weights Addendum: 06/30/22 at [address] Amended: Links added.
[2022-06-30 11:00] VITALS: BP 120/61
--- NOTE | 2022-06-30 12:31 | NUR ---
JEM paged. [id number]- Charles. Pt on a heparin gtt 1200 units/hr. For the cath procedure, does this need to be continued or held? Thanks. Jose Jett LVN Addendum: 06/30/22 at 1407 by Jose Jett LVN Wrong Patient
--- NOTE | 2022-06-30 14:06 | NUR ---
Paged Page Accepted Message: [id number]- Ttdu. Pt is requesting when she will be discharged? She stated she would be discharged after lunch. Thanks. Jose Jett LVN Custom Responses: Transaction number: [id number]
[2022-06-30 15:00] VITALS: BP 125/70
[2022-06-30] MEDS ORDERED: ASPI-611 PO (15:35)
[2022-06-30] MEDS ORDERED: CARSR60C PO (15:35)
[2022-06-30] MEDS ORDERED: LACT1CAP55 PO (15:36)
[2022-06-30] MEDS ORDERED: AMOX-580 PO (15:36)
--- NOTE | 2022-06-30 16:18 | NUR ---
EVELIO Paged [phone]- Ball. Pt is being discharged and request if available to speak with EVELIO. Pt has a new dx of Lung Ca. Thanks. Jose MOOREN
--- NOTE | 2022-06-30 17:09 | NUR ---
Patient in room PCU 3015. I have received report from Danielle TILLMAN and had the opportunity to ask questions and assume patient care. PT alert and oriented. Pt easily irritated. Pt V/S 111/69, HR 46, re-evaluated 54 BPM Sinus lisa with junctional beats per global position system technician, RR 20, T98.7, Belongings will be brought up by ICU nurse
--- NOTE | 2022-06-30 17:16 | NUR ---
All written and verbal discharge instructions provided to patient and daughter. PIV discontinued. Telebox discontinued. All questions answered. Wound care pictures taken. Pt provided pathology report as requested. Pt reinforced to follow up with PCP as per MD orders. Pt ambulated to lobby via wheelchair. All belongings including cell phone gathered by patient and daughter. Addendum: 06/30/22 at 1720 by Jsoe Jett LVN Amended: Links added.
== END 2022-06-30 17:20 | disposition home health service (06) | DRG 698 ==
LOC: ER 15:33 → ED HOLD 22:57 → UNDOADMIN 22:59 → ED HOLD 22:59 → PCU 3S 06-25 10:58
PROVIDERS: ADMIT Internal Medicine; ATTEND Family Medicine
PROC: 0BBL3ZX Excision of Left Lung, Percutaneous Approach, Diagnostic (ICD-10-PCS; principal; 2022-06-29)
DX: T83.511A Infection and inflammatory reaction due to indwelling urethral catheter, initial encounter (principal); R53.2 Functional quadriplegia; C34.92 Malignant neoplasm of unspecified part of left bronchus or lung; G93.40 Encephalopathy, unspecified; N17.9 Acute kidney failure, unspecified; Z16.21 Resistance to vancomycin; E83.52 Hypercalcemia; N39.0 Urinary tract infection, site not specified; Z66 Do not resuscitate; L89.159 Pressure ulcer of sacral region, unspecified stage; B95.2 Enterococcus as the cause of diseases classified elsewhere; R31.9 Hematuria, unspecified; E03.9 Hypothyroidism, unspecified; E11.9 Type 2 diabetes mellitus without complications; F32.A Depression, unspecified; I25.10 Atherosclerotic heart disease of native coronary artery without angina pectoris; I48.91 Unspecified atrial fibrillation; J44.9 Chronic obstructive pulmonary disease, unspecified; L98.419 Non-pressure chronic ulcer of buttock with unspecified severity; Z74.01 Bed confinement status; Z79.01 Long term (current) use of anticoagulants; Z88.1 Allergy status to other antibiotic agents; Z93.3 Colostomy status; Z99.3 Dependence on wheelchair; Z79.899 Other long term (current) drug therapy
CPT/HCPCS: 32408; 36415; 71045; 71250; 77012; 80048; 80053; 80202; 81001; 82784; 82948; 83605; 83735; 83970; 84100; 84132; 84145; 84443; 85008; 85025; 86334; 87040; 87077; 87081; 87088; 87186; 88305; 88341; 88342; 93005; 94640; 94760; 97110; 97161; 97530; 99152; 99153; 99285; A4615; A6243; A6250; A6253; A6449; G0378; J0696; J1940; J2020; J2250; J2270; J2405; J2430; J2543; J3010; J3370; J3475; J3490; J7030; J7040; J7050; J7512; Q0163